=== PATIENT | male | born 1980 | race Two or more races ===

== ENCOUNTER 2024-12-17 01:07 | Emergency (ER) | payer SELFPAY ==
[~2024-12-17] VITALS: Ht 177.8 cm; Wt 77.1 kg
[2024-12-17 02:51] VITALS: BP 114/72; O2SAT 98
== END 2024-12-17 02:51 | disposition home or self-care (01) ==
LOC: ER 01:13
DX: S81.832D Puncture wound without foreign body, left lower leg, subsequent encounter (principal); I87.2 Venous insufficiency (chronic) (peripheral); Z48.02 Encounter for removal of sutures; W34.00XD Accidental discharge from unspecified firearms or gun, subsequent encounter
CPT/HCPCS: 73590; A4606; A4663